=== PATIENT | female | born 1930 | race Caucasian/White ===

== ENCOUNTER 2016-09-28 08:52 | Inpatient (IN) | payer OTHER ==
[~2016-09-28] VITALS: Ht 157.5 cm; Wt 76.7 kg
--- NOTE | ~2016-09-28 | EKG ---
[address] [place] [address] ELECTROCARDIOGRAM REPORT Name: FABIANA MERA Room #: 453-P ADM IN M.R.#: [id number] Admission: 09/28/16 Attend Phys: Dominick Schwab MD Discharge: Date of : 32 Report #: [id number] THIS REPORT FOR: //name// [facility] ED Test Date: 2016-09-28 Test Time: 08:58:50 Pat Name: FABIANA MERA Department: Room: [facility] Gender: F Dish Washer: MIRANDA : 1930 Requested By: Merari Irene Order Number: [id number] MD: Andrey Her Measurements Intervals [place] Rate: 117 P: ID: QRS: 23 QRSD: 92 T: 74 QT: 322 QTc: 450 Interpretive Statements Atrial fibrillation Low voltage, extremity leads No previous ECG available for comparison Electronically Signed On 09-28-2016 12:49:30 SUPERINTENDENT TRANSMISSION by Andrey Her [email or web address] <ELECTRONICALLY SIGNED> By: Andrey Her MD, [facility] 09/28/16 [id number] [id number] Andrey Her MD, FACC /EPI
[~2016-09-28 08:52] MED LIST: AMARYL1 MG PO; AMARYL2 MG PO; ANASPAZ0.125 MG SL; AZITHROMYCIN 2250 MG PO; BACTRIM DS TAB1 EACH PO; COLACE100 MG PO; DIOVAN40 MG PO; DUONEB 2.5-0.5 M3 ML IH; EVISTA; FLOVENT HFA 2220 MC1 INH; FUROSEMIDE 20 M20 M1 PO; HYDROXYZINE HCL10 M1 PO; IRON325; IRON325 PO; LEVOTHYROXIN0.137 M1 PO; LOMOTIL TABLET1 EACH PO; MACROBID 100 M100 M1 PO; MEDROLDOSEPACK PO; METFORMIN 500500 MG PO; METFORMIN HCL500 M2 PO; METOCLOPRAMIDE10 MG PO; MIRALAX17 GM PO; MUCINEX TA600 MG/TA2 PO; NOVOLOG100 UNIT/1; OXYCODONE HCL5 M1 PO; OXYCONTIN10 M1 PO; OXYCONTIN30 MG PO; PERCOCET 10-321 EAC1 PO; PERCOCET PO; POTASSIUM20 PO; PREDNISONE 20 M20 MG; PREDNISONE 20 M20 MG PO; PRILOSEC 20 MG20 MG PO; PROAIR HFA8.5 GM INH; SENNA PO; SIMVASTATIN20 MG PO; SINGULAIR 10 MG10 M1 PO; SYNTHROID112 MCG PO; ZOCOR20 MG PO; ZPAK PO
[2016-09-28 08:54] VITALS: BP 140/69
[2016-09-28] MEDS ORDERED: IMDUR 30 MG TAB30 M1 PO (09:27)
[2016-09-28] MEDS ORDERED: ASPIR 8181 M1 PO (09:27)
[2016-09-28] MEDS ORDERED: PERCOCET 10-321 EACH PO (09:27)
[2016-09-28] MEDS ORDERED: LEVOTHYROXIN0.025 MG PO (09:28)
[2016-09-28] MEDS ORDERED: DIOVAN 80 MG TA80 M1 PO (09:28)
[2016-09-28] MEDS ORDERED: ZOCOR20 MG PO (09:29)
[2016-09-28] MEDS ORDERED: ZANTAC 150MG T150 MG PO (09:29)
[2016-09-28 09:30] LABS: ABSOLUTE NEUTROPHILS 3.6 thou/uL (1.4-8.2); BASOPHILS 0.3 % (0.0-2.0); EOSINOPHILS 0.8 % (0.0-3.0); HEMOGLOBIN 12.1 gm/dL (12.0-15.0); LYMPHOCYTES 28.2 % (24.0-44.0); MCH 25.6 pg (26.0-34.0); MCHC 31.7 % (28.0-37.0); MCV 80.7 fL (80.0-100.0); MONOCYTES 11.1 % (1.0-8.0); PLATELET COUNT 358 thou/uL (150-400); POLYS 59.6 % (36.0-66.0); RBC 4.72 mil/uL (4.20-5.00); RDW 18.3 % (10.5-14.5)
[2016-09-28] MEDS ORDERED: SINGULAIR 10 MG10 M1 PO (09:30)
[2016-09-28] MEDS ORDERED: LASIX 20 MG TAB20 MG PO (09:30)
[2016-09-28] MEDS ORDERED: TOPROL XL25 MG PO (09:30)
[2016-09-28] MEDS ORDERED: METFORMIN HCL500 MG PO (09:31)
[2016-09-28] MEDS ORDERED: AMARYL2 M1 PO (09:31)
[2016-09-28 09:32] LABS: MANUAL DIFF NO
[2016-09-28] MEDS ORDERED: OXYCONTIN40 MG PO (09:32)
[2016-09-28 09:38] LABS: ANION GAP 3 mmol/L (7-16); BUN 13 mg/dL (7-18); CALCIUM 9.6 mg/dL (8.5-10.1); CHLORIDE 98 mmol/L (98-107); CO2 30 mmol/L (21-32); CREATININE 0.9 mg/dL (0.6-1.3); GLUCOSE 169 mg/dL (70-99); POTASSIUM 3.7 mmol/L (3.5-5.1); SODIUM 131 mmol/L (136-145)
[2016-09-28 09:50] LABS: ALBUMIN 3.3 g/dL (3.4-5.0); ALKALINE PHOSPHATASE 66 U/L (46-116); SGOT 15 U/L (15-37); SGPT 16 U/L (30-65); TOTAL BILIRUBIN 0.4 mg/dL (<0.1-1.0); TOTAL PROTEIN 7.6 g/dL (6.4-8.2)
[2016-09-28 11:21] VITALS: BP 133/65
[2016-09-28 11:40] VITALS: BP 137/72
[2016-09-28] MEDS ORDERED: PROAIR HFA8.5 GM INH (12:14)
[2016-09-28] MEDS ORDERED: VENTOLIN HFA 1818 GM INH (12:15)
[2016-09-28 12:50] LABS: NT-PRO BRAIN NAT PEPTIDE 56 pg/mL (<300); TROPONIN-I < 0.04 ng/mL (<0.04-0.07)
[2016-09-28 14:08] LABS: URINE BILIRUBIN NEGATIVE (Negative); URINE BLOOD NEGATIVE (Negative); URINE COLOR YELLOW; URINE GLUCOSE-RANDOM* NEGATIVE (Negative); URINE KETONES TRACE (Negative); URINE LEUKOCYTES-REFLEX NEGATIVE (Negative); URINE PROTEIN (DIPSTICK) NEGATIVE (Negative); URINE SPECIFIC GRAVITY 1.015 (1.003-1.035); URINE UROBILINOGEN 0.2 E.U./dl (0.2-1.0)
[2016-09-28 16:00] VITALS: BP 137/71
[2016-09-28 19:15] VITALS: BP 137/71
[2016-09-29 03:58] LABS: HEMATOCRIT 35.4 % (37.0-47.0); HEMOGLOBIN 11.3 gm/dL (12.0-15.0); MCHC 32.1 % (28.0-37.0); RBC 4.37 mil/uL (4.20-5.00); RDW 18.3 % (10.5-14.5); WBC 4.5 thou/uL (4.0-11.0)
[2016-09-29 04:06] VITALS: BP 148/73
[2016-09-29 04:15] LABS: CALCIUM 9.5 mg/dL (8.5-10.1); CREATININE 0.7 mg/dL (0.6-1.3)
[2016-09-29 07:50] VITALS: BP 134/67
[2016-09-29 16:00] VITALS: BP 109/60
[2016-09-29 20:13] VITALS: BP 112/58
[2016-09-30 05:17] VITALS: BP 128/62
[2016-09-30 06:23] LABS: HEMATOCRIT 33.5 % (37.0-47.0); HEMOGLOBIN 10.4 gm/dL (12.0-15.0); MCH 25.6 pg (26.0-34.0); MCHC 30.9 % (28.0-37.0); MCV 82.9 fL (80.0-100.0); RBC 4.04 mil/uL (4.20-5.00); RDW 19.1 % (10.5-14.5); WBC 9.5 thou/uL (4.0-11.0)
[2016-09-30 07:03] LABS: CALCIUM 9.3 mg/dL (8.5-10.1); CREATININE 0.8 mg/dL (0.6-1.3); POTASSIUM 3.8 mmol/L (3.5-5.1)
[2016-09-30 07:48] VITALS: BP 130/69
[2016-09-30 16:02] VITALS: BP 132/67
[2016-09-30 19:25] VITALS: BP 153/72
[2016-10-01] VITALS (7 sets, daily range): BP systolic 132–147; BP diastolic 65–69
[2016-10-01 02:58] LABS: ABG SAMPLE TYPE ARTERIAL; BE(vivo) 1.7 mmol/L (-2 to +3); HCO3 25.7 mmol/L (22.0-26.0); LACTATE 1.77 mmol/L (0.5-2.0); O2(CT) 15.2 mL/dL (15.0-23.0); O2Hb 95.4 % (92.0-98.0); PCO2 37.9 mmHg (35.0-45.0); PO2 81.3 mmHg (80.0-100.0); pH 7.449 (7.360-7.450); sO2 96.5 % (92.0-98.0); tCO2 26.9 mmol/L (24.0-30.0)
[2016-10-01 02:59] LABS: STICK SITE L.RADIAL
[2016-10-01 04:38] LABS: HEMATOCRIT 35.2 % (37.0-47.0); HEMOGLOBIN 10.8 gm/dL (12.0-15.0); MCH 25.5 pg (26.0-34.0); MCHC 30.8 % (28.0-37.0); MCV 82.7 fL (80.0-100.0); RBC 4.26 mil/uL (4.20-5.00); RDW 18.4 % (10.5-14.5); WBC 12.2 thou/uL (4.0-11.0)
[2016-10-01 04:42] LABS: CALCIUM 9.5 mg/dL (8.5-10.1); CREATININE 0.9 mg/dL (0.6-1.3); POTASSIUM 3.4 mmol/L (3.5-5.1)
[2016-10-01] MEDS ORDERED: CEFDINIR300 MG PO (13:43)
[2016-10-01] MEDS ORDERED: PREDNISONE 10 M10 MG PO (13:43)
[2016-10-01] MEDS ORDERED: MUCINEX TA600 MG/TA2 PO (13:44)
== END 2016-10-01 15:54 | disposition home health service (06) | DRG 177 ==
LOC: ER 08:52 → 4W 10:49 → EROBS 10:49 → 4W 11:22
PROVIDERS: Hospitalist; Nurse Practitioner; Nurse Practitioner Family
DX: J15.6 Pneumonia due to other Gram-negative bacteria (principal); J96.20 Acute and chronic respiratory failure, unspecified whether with hypoxia or hypercapnia; J44.0 Chronic obstructive pulmonary disease with (acute) lower respiratory infection; E87.1 Hypo-osmolality and hyponatremia; J44.1 Chronic obstructive pulmonary disease with (acute) exacerbation; Z60.2 Problems related to living alone; E78.5 Hyperlipidemia, unspecified; G89.29 Other chronic pain; I48.91 Unspecified atrial fibrillation; I10 Essential (primary) hypertension; E11.9 Type 2 diabetes mellitus without complications; J45.909 Unspecified asthma, uncomplicated; E03.9 Hypothyroidism, unspecified; M17.9 Osteoarthritis of knee, unspecified; M19.90 Unspecified osteoarthritis, unspecified site; Z88.0 Allergy status to penicillin; Z88.1 Allergy status to other antibiotic agents; Z79.899 Other long term (current) drug therapy; Z79.82 Long term (current) use of aspirin
CPT/HCPCS: 10045